=== PATIENT | female | born 1995 | race Caucasian/White ===

== ENCOUNTER 2020-08-18 21:01 | Inpatient (IN) ==
[2020-08-18] MEDS ORDERED: OXYTOCIN 30 UNITS/500 ML BAG IV PRN (21:55)
--- NOTE | 2020-08-18 22:09 | History & Physical Report ---
Date of Service August 18, 2020 Assessment & Plan (1) PROM (premature rupture of membranes): We will do a rapid Covid test as her previous one is out of date group B strep negative the patient wishes to try to walk for a few hours I discussed if after 6 to 8 hours there is no contraction activity would strongly recommend Pitocin and she agrees to this initial blood pressures are somewhat elevated I will order labs as well he is asymptomatic in this regard heart rate is reactive at this stage History of Present Illness Primary Care Provider: NO PCP 40 weeks gestation presents with spontaneous rupture of membranes this happened approximately at 6 PM today the patient is not haily at this time states her fetus is been moving she continues to leak has no bleeding. The patient's was essentially uncomplicated she did have a ultrasound done at approximately 35 to 36 weeks which showed a left estimated weight of 12% and an abdominal circumference of 8%. Group B strep negative the patient has a pending Covid test which was a routine screen her previous Covid test is out of date so a rapid test will be ordered Allergies Allergy/AdvReac Type Severity Reaction Status Date / Time No Known Allergies Verified 08/16/20 11:51 Home Medications Medication Instructions Recorded Confirmed Type omega-3 fatty acids 1,000 mg 1,000 mg PO DAILY 05/14/20 08/18/20 History capsule prenat.vits,emerald,iko-[id number] 1 tab PO DAILY 05/14/20 08/18/20 History ascorbic acid (vitamin C) 1,000 mg PO ONCE 07/19/20 08/18/20 History Patient History Medical History (Updated 08/18/20 @ 22:08 by Hugh Lynch MD, FACOG) Encounter for suspected premature rupture of membranes, with rupture of membranes not found Mandibular hypoplasia Marginal insertion of umbilical cord affecting management of mother with 37 weeks completed gestation Surgical History H/O oral surgery History of esophagogastroduodenoscopy (EGD) History of laparoscopy S/P colonoscopy Status post osteotomy bilateral sagittal split osteotomy Family History Father Brain cancer Kidney disease Grandmother (Maternal) Breast cancer Grandfather (Maternal) Diabetes Brother Kidney disease Grandmother No problems noted. 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 Beliefs That Will Affect Care: None marital status: marital status details: Maximus (29) [phone] Current Living Situation: Spouse Current Living Situation Comment: Maximus Price current occupational status: unemployed Other Information That Helps Us Care for You: No Feels Safe at Home: Yes Safety Concerns: Feels Safe At This Time Assistive Devices: Glasses Physical Exam Constitutional: WD/WN, vitals as above Respiratory: normal respiratory effort, lungs clear to auscultation Cardiovascular: RRR, no murmur, no edema Genitourinary: Manual OB Exam: + cervical dilation 1 cm, + cervical effacement 70% and + station -2 OB Exam Monitor Tracing: + external FHT monitor used Results & Data ([facility]) Vital Signs (Past 12 Hours) Vital Signs Temp Pulse Resp BP 08/18/20 22:04 97 H 162/97 H 08/18/20 21:25 94 H 143/95 H 08/18/20 21:19 98.2 F 18 Coding Level of Care Code None Diagnoses PROM (premature rupture of membranes) O42.90
[2020-08-18 22:49] LABS: Hematocrit (blood only) 38.2 % (37-47); Hemoglobin 13.4 g/dL (12.0-16.0); Mean Corpuscular Hemoglobin 32.5 pg (25-34); Mean Corpuscular Hgb Conc 35.1 g/dL (32-36); Mean Corpuscular Volume 92.7 fL (80-100); Mean Platelet Volume 11.9 fL (7.4-10.4); Platelet Count 204 K/uL (130-400); RDW Coefficient of Variation 13.9 % (11.5-14.5); Red Blood Count 4.12 M/uL (4.2-5.4); White Blood Count 12.32 K/uL (4.8-10.8)
[2020-08-18 23:05] LABS: Creatinine Clr Calc Pharmacy 155.4 ml/min; Est GFR (African American) 145.6; Est GFR (Non-African American) 125.6
[2020-08-19] MEDS: LACTATED RINGER'S 1,000 ML IV PRN ×2 (00:42→01:39)
[2020-08-19] MEDS ORDERED: SODIUM CHLORIDE 0.9% INJ 10 ML VIAL ONE ×2 (00:47→03:34)
[2020-08-19] MEDS ORDERED: ePHEDrine sulfate 50 MG/ML AMP ONE ×3 (00:47→06:40)
[2020-08-19] MEDS ORDERED: fentaNYL citrate 100 MCG/2 ML VIAL ONE ×2 (00:48→03:35)
[2020-08-19] MEDS ORDERED: BUPIVACAINE 0.25% 30 ML VIAL ONE ×3 (00:48→03:35)
[2020-08-19] MEDS ORDERED: fentaNYL 2MCG/ML ROPIVACAINE 1.25MG/ML 100 ML BAG EPI ONE ×2 (00:49→03:35)
[2020-08-19] MEDS ORDERED: NALOXONE HCL 1 MG in SODIUM CHLORIDE 0.9% 1000ML 1,000 ML IV PRN (00:58)
[2020-08-19] MEDS ORDERED: fentaNYL 2MCG/ML ROPIVACAINE 1.25MG/ML 100 ML BAG EPI PRN (00:58)
[2020-08-19] MEDS ORDERED: ONDANSETRON INJ 2 MG/ML 2 ML VIAL IV PRN (00:58)
[2020-08-19] MEDS ORDERED: ePHEDrine sulfate 50 MG/ML AMP IV PRN (00:58)
[2020-08-19] MEDS ORDERED: diphenhydrAMINE 50 MG/ML VIAL IV PRN (00:58)
[2020-08-19] MEDS ORDERED: NALOXONE HCL 0.4 MG/1 ML VIAL/CARP IV PRN (00:58)
--- NOTE | 2020-08-19 01:00 | Anesthesiology Consultation ---
Date of Service August 19, 2020 Assessment & Plan (1) Encounter for pre-operative examination: Chart Review Chart Review: Patient NOT seen in Pre Admission Testing and Acceptable Risk for Labor Epidural Consults Requested none History Height/Weight Height: 5 ft 4 in Weight: 89.811 kg Allergies Allergy/AdvReac Type Severity Reaction Status Date / Time No Known Allergies Verified 08/16/20 11:51 Medications Home Medications Medication Instructions Recorded Confirmed Last Taken omega-3 fatty acids 1,000 mg 1,000 mg PO DAILY 05/14/20 08/18/20 08/16/20 capsule prenat.vits,emerald,lim-frgw-kuufz 1 tab PO DAILY 05/14/20 08/18/20 08/17/20 ascorbic acid (vitamin C) 1,000 mg PO ONCE 07/19/20 08/18/20 08/17/20 Active Medications Generic Name Dose Route Start Last Admin Trade Name Freq PRN Reason Stop Dose Admin Lactated Ringer's 1,000 mls @ 125 mls/hr 08/18/20 21:55 08/19/20 00:42 Lr IV 08/20/20 21:54 999 mls/hr .Q8H PRN Administration L&D Protocol Protocol Past Medical History Medical History Encounter for suspected premature rupture of membranes, with rupture of membranes not found Mandibular hypoplasia Marginal insertion of umbilical cord affecting management of mother with 37 weeks completed gestation Exercise / Class Metabolic Activity II 4-5 Yardwork/Stairs/Walk up hill Past Family History Family History Father Brain cancer Kidney disease Grandmother (Maternal) Breast cancer Grandfather (Maternal) Diabetes Brother Kidney disease Grandmother No problems noted. Grandmother (Paternal) Lymphoma Past Surgical History Surgical History H/O oral surgery History of esophagogastroduodenoscopy (EGD) History of laparoscopy S/P colonoscopy Status post osteotomy bilateral sagittal split osteotomy Past Anesthesia History No Hx of Anesthesia Complications and No Family Hx of Anesthesia Complications History of PONV No Hx of PONV and No Hx of Motion Sickness Social History Smoking Status: Never smoker Do You Dip or Chew Tobacco: No Hx Alcohol Use: No Hx Substance Use: No substance use type: does not use Physical Exam Vital Signs Last Vital Signs Temp 36.7 C 08/19/20 00:47 Pulse 88 08/19/20 01:17 Resp 20 08/19/20 01:15 BP 139/88 08/19/20 01:16 Pulse Ox 93 08/19/20 01:17 Testing Laboratory Results 08/18/20 22:15 08/18/20 22:15
[2020-08-19] MEDS ORDERED: OXYTOCIN 30 UNITS/500 ML BAG IV PRN ×2 (02:00→06:01)
--- NOTE | 2020-08-19 03:33 | Communication Note ---
Date of Service: August 19, 2020 Patient initially comfortable after placing epidural (did epidural and NOT CSE) but two hours later called back by nursing as patient having increasing pain with contractions. Pain somewhat left sided and level was not as high on the left as the right so decided to pull back the catheter 1cm and reapplied sterile dressing. Bolused a total of 10ml 0.25% bupivicaine in divided doses while patient on monitor. VSS. Pain decreased to a tolerable level but it was still present. At this time patient ok with continuing with current epidural but I also did increase the rate. I feel the only other option at this point is to replace the epidural if she continues to have pain. An hour later patient still endorsing pain and wants to try and replace the epidural.
--- NOTE | 2020-08-19 04:04 | Labor Progress Brief Note ---
Date of Service August 19, 2020 Patient is now 6 cm she is struggled with pain relief and is on her second epidural her blood pressures have been elevated we did check preeclampsia labs and these were normal. Some of her elevated blood pressure and discussion with anesthesia at delivery related to pain her most recent 1 is 141/96 although she has had some other ones that were more elevated discussed the role of nifedipine if this maintains I think a lot of these again are related to poor pain control which seems to be improving at this stage Assessment & Plan Admission and Anticipated Discharge Date Admission Date: August 18, 2020 Results & Data ([facility]) Vital Signs (Past 12 Hours) Vital Signs Temp Pulse Resp BP Pulse Ox 08/19/20 04:00 105 H 93 08/19/20 03:58 105 H 156/92 H 96 08/19/20 03:55 92 H 179/93 H 08/19/20 03:54 94 H 93 08/19/20 03:53 95 H 93 08/19/20 03:49 97 H 94 08/19/20 03:48 97 H 154/101 H 89 L 08/19/20 03:44 95 H 93 08/19/20 03:43 97 H 95 08/19/20 03:38 91 H 94 08/19/20 03:33 106 H 94 08/19/20 03:28 89 98 08/19/20 03:27 93 H 163/93 H 91 08/19/20 03:23 76 96 08/19/20 03:22 79 89 L 08/19/20 03:18 83 94 08/19/20 03:16 94 H 94 08/19/20 03:13 82 95 08/19/20 03:10 86 143/90 H 08/19/20 03:08 79 96 08/19/20 03:07 85 93 08/19/20 03:04 84 136/79 08/19/20 03:03 86 95 08/19/20 03:02 77 138/80 08/19/20 03:00 93 H 86 L 08/19/20 02:58 97 H 143/73 H 97 08/19/20 02:56 85 151/80 H 08/19/20 02:55 81 92 08/19/20 02:54 77 149/82 H 08/19/20 02:53 84 97 08/19/20 02:52 80 154/82 H 08/19/20 02:50 77 174/97 H 08/19/20 02:48 81 91 08/19/20 02:46 89 152/77 H 08/19/20 02:44 69 141/70 H 08/19/20 02:43 76 97 08/19/20 02:42 73 158/79 H 93 08/19/20 02:40 81 18 165/89 H 08/19/20 02:38 90 97 08/19/20 02:33 79 100 08/19/20 02:28 86 99 08/19/20 02:25 98.1 F 88 22 149/84 H 08/19/20 02:24 77 167/87 H 08/19/20 02:23 88 97 08/19/20 02:18 86 96 08/19/20 02:14 75 94 08/19/20 02:13 81 96 08/19/20 02:10 78 165/84 H 08/19/20 02:08 84 97 08/19/20 02:03 79 99 08/19/20 02:01 78 93 08/19/20 01:58 80 98 08/19/20 01:53 81 134/89 97 08/19/20 01:51 80 177/81 H 08/19/20 01:48 83 94 08/19/20 01:46 88 135/79 08/19/20 01:45 18 08/19/20 01:43 99 H 94 08/19/20 01:41 88 122/81 08/19/20 01:40 93 H 94 08/19/20 01:38 95 H 93 08/19/20 01:36 90 147/89 H 08/19/20 01:34 96 H 94 08/19/20 01:33 90 94 08/19/20 01:30 90 16 147/80 H 08/19/20 01:29 99 H 94 08/19/20 01:28 97 H 141/83 H 93 08/19/20 01:26 107 H 138/86 08/19/20 01:25 18 08/19/20 01:24 104 H 135/81 08/19/20 01:23 112 H 94 08/19/20 01:22 103 H 137/82 08/19/20 01:20 93 H 18 148/88 H 08/19/20 01:19 101 H 142/84 H 08/19/20 01:18 89 95 08/19/20 01:17 88 93 08/19/20 01:16 90 139/88 08/19/20 01:15 20 08/19/20 01:14 87 154/92 H 08/19/20 01:13 96 H 95 08/19/20 01:11 99 H 94 08/19/20 01:08 89 97 08/19/20 01:05 96 H 94 08/19/20 01:03 88 98 08/19/20 00:59 91 H 94 08/19/20 00:58 86 95 08/19/20 00:47 98.1 F 81 20 138/85 08/18/20 23:28 98.1 F 18 08/18/20 22:08 88 140/88 08/18/20 22:06 97 H 143/92 H 08/18/20 22:04 97 H 162/97 H 08/18/20 21:25 94 H 143/95 H 08/18/20 21:19 98.2 F 18 Coding Level of Care Code None
--- NOTE | 2020-08-19 04:21 | Anesthesiology Progress Note ---
Date of Service August 19, 2020 Assessment & Plan (1) Encounter for pre-operative examination: Neuraxial Placement Date and time of procedure: 08/19/2020 Indication: Post-operative pain control Consent: Informed consent obtained from the patient or designated proxy. The inherent risks, expected benefits, treatment alternatives, as well as the technical aspects of the procedure were discussed with the patient and a full explanation was given. Patient was given the opportunity to ask questions, which were answered to their satisfaction. Time Out: A time-out was performed verifying correct patient with two identifiers, procedure, site, positioning, and special equipment (if needed). Monitors Attached: EKG BP Pulse Oximetry Prehydrated: [500]ml lactated ringers Position: Sitting Prep: Duraprep Sterile Drape Sterile procedures used Site: Midline Paramedian Level L[] Local Skin Infiltration: [2] ml 1% lidocaine Neuraxial Technique: Epidural Needle: 17 G FernandoVingle Test dose: [3]ml of 1.5% Lidocaine with epinephrine 1:200,000 Anesthetic: [10]ml 0.125% Bupivicaine Additives: [100] mcg Fentanyl Attempts: 1 Parasthesias: No CSF: No Blood: No heme aspirated. Some bleeding at skin site. Pressure held. Rechecked 20 minutes later. No further bleeding appreciated. Post Procedure: Patient tolerated the procedure well without apparent complications. Admission and Anticipated Discharge Date Admission Date: August 18, 2020 Subjective Replaced patient's epidural. See note below. Physical Exam Vital Signs: Last Vital Signs Temp 36.7 C 08/19/20 02:25 Pulse 104 H 08/19/20 04:13 Resp 18 08/19/20 02:40 BP 153/96 H 08/19/20 04:08 Pulse Ox 93 08/19/20 04:13 ENMT: Mouth: no TMJ abnormality and no dentition abnormality Thyromental Distance: > or= 3.5 Finger Breadths Mallampati Class: II Neck: normal visual inspection Respiratory: normal respiratory effort Auscultation: lungs clear to auscultation bilaterally Cardiovascular: Rate/Rhythm: regular rate and regular rhythm Musculoskeletal: Spine: normal cervical ROM and no pain with cervical ROM Neurologic: moves all extremities Psychiatric: Orientation: alert and oriented x 3 Results & Data ([facility]) Medications Administered Lactated Ringer's (Lr) 1,000 mls @ 125 mls/hr IV .Q8H PRN; Protocol PRN Reason: L&D Protocol Stop: 08/20/20 21:54 Last Admin: 08/19/20 01:39 Dose: 125 mls/hr Documented by: [id number] Infusion: 08/19/20 01:39 Dose: 999 mls/hr Documented by: [id number] Admin: 08/19/20 00:42 Dose: 999 mls/hr Documented by: [id number] Oxytocin (Pitocin) 30 units in 500 mls @ 3 mls/hr IV .Q24H PRN; Protocol PRN Reason: Labor Induction/Augmentation Stop: 09/18/20 01:59 Last Titration: 08/19/20 03:00 Dose: 0.18 units/hr, 3 mls/hr Documented by: [id number] Admin: 08/19/20 02:01 Dose: 0.06 units/hr, 1 mls/hr Documented by: [id number] Cosigned by: [id number]
[2020-08-19] MEDS ORDERED: NIFEdipine 10 MG CAP PO STA (05:47)
--- NOTE | 2020-08-19 05:48 | Delivery Summary ---
Vaginal Delivery Summary Date of Service August 19, 2020 Spontaneous vaginal delivery patient arrived with ruptured membranes was clarke lowry with Pitocin received an epidural had some difficulties getting comfortable and received a second epidural at that time her blood pressures were somewhat labile she did progress rapidly to full dilatation and pushed delivering a baby in occiput anterior position with clear fluid no nuchal cord baby was delivered with gentle traction no excessive force was used live vigorous male cord clamped and cut cord gases obtained cord blood obtained placenta removed with gentle traction IV Pitocin started second-degree tear repaired with 3-0 Vicryl sponge and instrument counts were correct estimated blood loss 250 mL Her blood pressures were fairly labile after delivery with systolics in the 130s then ranging to the 170s with the systolic of 170 nifedipine 10 mg p.o. stat was given will monitor blood pressures carefully at this stage Vaginal Delivery Summary [facility] Vaginal Delivery Charge Vaginal Delivery Codes: 42612 global code for the antepartum, delivery, and post- Procedure Anesthesia type: Epidural
[2020-08-19] MEDS ORDERED: NIFEdipine 10 MG CAP ONE (05:52)
[2020-08-19] MEDS ORDERED: ACETAMINOPHEN 325 MG TAB PO PRN (06:01)
[2020-08-19] MEDS ORDERED: HYDROCORTISONE ACETATE 25 MG SUPP PR PRN (06:01)
[2020-08-19] MEDS ORDERED: oxyCODONE/ACETAMINOPHEN 5mg/325mg TAB PO PRN (06:01)
[2020-08-19] MEDS ORDERED: bisacodyL 10 MG SUPP PR PRN (06:01)
[2020-08-19] MEDS ORDERED: BENZOCAINE 20% AER SPR 82.5 GM CAN EXT PRN (06:01)
[2020-08-19] MEDS ORDERED: DIPHTHERIA/TETANUS/PERTUSSIS 0.5 ML SYR/VIAL IM ONE (06:01)
[2020-08-19] MEDS ORDERED: SUPERCREAM 0.870% 15 GM JAR EXT PRN (06:01)
[2020-08-19 06:16] LABS: Base Excess Cord Venous Blood -3.4 mEq/L (-7.7-1.9); Cord Venous Blood HCO3 23 mmol/L (18.4-26.8); Cord Venous Blood PCO2 46 mmHg (30.4-57.2); Cord Venous Blood PO2 28 mmHg (14.1-43.3); Cord Venous Blood pH 7.32 (7.20-7.44)
[2020-08-19 06:19] LABS: O2 Saturation Cord Venous Bld < 60.0 % (<68)
[2020-08-19] MEDS ORDERED: ePHEDrine sulfate 50 MG/ML AMP IV STA (07:09)
--- NOTE | 2020-08-19 07:11 | Obstetrical Progress Note ---
Date of Service August 19, 2020 Assessment & Plan Admission and Anticipated Discharge Date Admission Date: August 18, 2020 Subjective After delivery the patient's blood pressures had increased significantly. She had a systolic of 176 she was asymptomatic but I ordered 10 mg p.o. of nifedipine she responded quite rapidly however her blood pressure became overly low with a 64/34 result after fluid bolus and then a subsequent 10 mg dose of ephedrine pressures have normalized her latest blood pressure is 115/55 we will watch her closely Results & Data ([facility]) Vital Signs (Past 12 Hours) Vital Signs Temp Pulse Resp BP Pulse Ox 08/19/20 07:07 125 H 115/55 L 08/19/20 07:05 123 H 112/58 L 08/19/20 07:03 104 H 112/66 08/19/20 07:01 112 H 104/59 L 08/19/20 06:59 106 H 110/61 08/19/20 06:57 112 H 105/63 08/19/20 06:55 110 H 105/61 08/19/20 06:53 103 H 99/57 L 08/19/20 06:51 110 H 99/57 L 08/19/20 06:49 106 H 95/52 L 08/19/20 06:47 107 H 88/52 L 08/19/20 06:45 100 H 90/48 L 08/19/20 06:43 99 H 98/46 L 08/19/20 06:42 90 64/34 L 08/19/20 06:41 76 64/36 L 08/19/20 06:39 81 64/35 L 08/19/20 06:38 90 71/41 L 08/19/20 06:36 77 70/38 L 08/19/20 06:35 80 73/37 L 08/19/20 06:31 77 91/49 L 08/19/20 06:18 139 H 137/72 08/19/20 06:03 117 H 20 144/99 H 08/19/20 05:44 98.2 F 106 H 18 172/84 H 08/19/20 05:43 111 H 195/93 H 08/19/20 05:42 114 H 131/103 H 08/19/20 05:38 112 H 93 08/19/20 05:33 118 H 92 08/19/20 05:32 109 H 94 08/19/20 05:28 131 H 97 08/19/20 05:27 126 H 92 08/19/20 05:24 129 H 138/94 08/19/20 05:23 126 H 97 08/19/20 05:21 116 H 88 L 08/19/20 05:18 120 H 96 08/19/20 05:13 117 H 89 L 08/19/20 05:10 111 H 91 08/19/20 05:09 102 H 139/102 H 08/19/20 05:08 95 H 96 08/19/20 05:05 104 H 94 08/19/20 05:03 109 H 75 L 08/19/20 04:59 93 H 94 08/19/20 04:58 83 96 08/19/20 04:54 79 138/79 08/19/20 04:53 89 95 08/19/20 04:52 88 94 08/19/20 04:48 104 H 95 08/19/20 04:44 84 90 08/19/20 04:43 108 H 91 08/19/20 04:39 98 H 147/87 H 94 08/19/20 04:38 99 H 95 08/19/20 04:33 97 H 93 08/19/20 04:28 94 H 93 08/19/20 04:27 96 H 94 08/19/20 04:24 96 H 145/80 H 08/19/20 04:23 93 H 94 08/19/20 04:21 98 H 94 08/19/20 04:18 96 H 94 08/19/20 04:16 96 H 94 08/19/20 04:13 104 H 93 08/19/20 04:10 104 H 89 L 08/19/20 04:08 104 H 153/96 H 97 08/19/20 04:07 104 H 152/110 H 08/19/20 04:05 101 H 92 08/19/20 04:04 97 H 147/96 H 08/19/20 04:03 108 H 96 08/19/20 04:02 100 H 141/96 H 08/19/20 04:00 105 H 93 08/19/20 03:58 105 H 156/92 H 96 08/19/20 03:55 92 H 179/93 H 08/19/20 03:54 94 H 93 08/19/20 03:53 95 H 93 08/19/20 03:49 97 H 94 08/19/20 03:48 97 H 154/101 H 89 L 08/19/20 03:44 95 H 93 08/19/20 03:43 97 H 95 08/19/20 03:38 91 H 94 08/19/20 03:33 106 H 94 08/19/20 03:28 89 98 08/19/20 03:27 93 H 163/93 H 91 08/19/20 03:23 76 96 08/19/20 03:22 79 89 L 08/19/20 03:18 83 94 08/19/20 03:16 94 H 94 08/19/20 03:13 82 95 08/19/20 03:10 86 143/90 H 08/19/20 03:08 79 96 08/19/20 03:07 85 93 08/19/20 03:04 84 136/79 08/19/20 03:03 86 95 08/19/20 03:02 77 138/80 08/19/20 03:00 93 H 86 L 08/19/20 02:58 97 H 143/73 H 97 08/19/20 02:56 85 151/80 H 08/19/20 02:55 81 92 08/19/20 02:54 77 149/82 H 08/19/20 02:53 84 97 08/19/20 02:52 80 154/82 H 08/19/20 02:50 77 174/97 H 08/19/20 02:48 81 91 08/19/20 02:46 89 152/77 H 08/19/20 02:44 69 141/70 H 08/19/20 02:43 76 97 08/19/20 02:42 73 158/79 H 93 08/19/20 02:40 81 18 165/89 H 08/19/20 02:38 90 97 08/19/20 02:33 79 100 08/19/20 02:28 86 99 08/19/20 02:25 98.1 F 88 22 149/84 H 08/19/20 02:24 77 167/87 H 08/19/20 02:23 88 97 08/19/20 02:18 86 96 08/19/20 02:14 75 94 08/19/20 02:13 81 96 08/19/20 02:10 78 165/84 H 08/19/20 02:08 84 97 08/19/20 02:03 79 99 08/19/20 02:01 78 93 08/19/20 01:58 80 98 08/19/20 01:53 81 134/89 97 08/19/20 01:51 80 177/81 H 08/19/20 01:48 83 94 08/19/20 01:46 88 135/79 08/19/20 01:45 18 08/19/20 01:43 99 H 94 08/19/20 01:41 88 122/81 08/19/20 01:40 93 H 94 08/19/20 01:38 95 H 93 08/19/20 01:36 90 147/89 H 08/19/20 01:34 96 H 94 08/19/20 01:33 90 94 08/19/20 01:30 90 16 147/80 H 08/19/20 01:29 99 H 94 08/19/20 01:28 97 H 141/83 H 93 08/19/20 01:26 107 H 138/86 08/19/20 01:25 18 08/19/20 01:24 104 H 135/81 08/19/20 01:23 112 H 94 08/19/20 01:22 103 H 137/82 08/19/20 01:20 93 H 18 148/88 H 08/19/20 01:19 101 H 142/84 H 08/19/20 01:18 89 95 08/19/20 01:17 88 93 08/19/20 01:16 90 139/88 08/19/20 01:15 20 08/19/20 01:14 87 154/92 H 08/19/20 01:13 96 H 95 08/19/20 01:11 99 H 94 08/19/20 01:08 89 97 08/19/20 01:05 96 H 94 08/19/20 01:03 88 98 08/19/20 00:59 91 H 94 08/19/20 00:58 86 95 08/19/20 00:47 98.1 F 81 20 138/85 08/18/20 23:28 98.1 F 18 08/18/20 22:08 88 140/88 08/18/20 22:06 97 H 143/92 H 08/18/20 22:04 97 H 162/97 H 08/18/20 21:25 94 H 143/95 H 08/18/20 21:19 98.2 F 18 PG Care Time/CCT Total # of Minutes Spent Total Time Spent with Patient: Total time spent is greater than 50% in coordination of care (as documented) at patient's floor/unit and/or counseling patient: Coding Level of Care Code None
[2020-08-19] MEDS: IBUPROFEN 600 MG TAB PO PRN ×3 (07:32→17:02)
--- NOTE | 2020-08-19 07:41 | Anesthesia Procedure Note ---
Date of Service August 19, 2020 Anesthesia Post Epidural Note Vital Signs Vital Signs: Temp Pulse Resp BP Pulse Ox 36.8 C 126 H 18 123/68 93 08/19/20 05:44 08/19/20 07:17 08/19/20 06:45 08/19/20 07:17 08/19/20 05:38 Pain Intensity Abdomen: Pain Intensity: 0 Notes Mental Status: alert / awake / arousable and participated in evaluation Nausea / Vomiting: adequately controlled Pain: adequately controlled Airway Patency, RR, SpO2: stable & adequate BP & HR: stable & adequate Hydration State: stable & adequate Neuraxial Anesthesia: was administered and sensory block is resolving Anesthetic Complications: no major complications apparent and Pt Satisfied with anesthetic care Epidural: Removed without complications and With tip intact Notes: Epidural site clean, dry and intact. No signs of edema, erythema or bruising at insertion site. Pt instructed to request anesthesia if she has residual lower extremity numbness or if she develops lower extremity pain or weakness, back pain or headache.
[2020-08-19] MEDS: DOCUSATE SODIUM 100 MG CAP PO SCH ×2 (08:25→19:58)
[2020-08-19] MEDS: PRENATAL VITAMIN 1 TAB PO SCH (08:25)
[2020-08-19] MEDS ORDERED: BUTORPHANOL TARTRATE 1 MG/ML VIAL IV STA (08:45)
[2020-08-19] MEDS ORDERED: OXYTOCIN 20 UNITS in LACTATED RINGER'S 1,000 ML IV SCH (09:00)
[2020-08-19 09:14] LABS: Hematocrit (blood only) 33.7 % (37-47); Hemoglobin 11.7 g/dL (12.0-16.0); Mean Corpuscular Hemoglobin 32.1 pg (25-34); Mean Corpuscular Hgb Conc 34.7 g/dL (32-36); Mean Corpuscular Volume 92.3 fL (80-100); Platelet Count 169 K/uL (130-400); RDW Coefficient of Variation 13.9 % (11.5-14.5); RDW Standard Deviation 46.7 fL (36.4-46.3); Red Blood Count 3.65 M/uL (4.2-5.4); White Blood Count 20.66 K/uL (4.8-10.8)
[2020-08-19 09:21] LABS: Albumin Level 2.3 gm/dl (3.4-5.0); BUN Creatinine Ratio 11.9 (10-20); Calcium 9.6 mg/dl (8.5-10.1); Est GFR (African American) 102.9; Est GFR (Non-African American) 88.8; Potassium 3.7 mmol/L (3.5-5.1)
[2020-08-19 09:24] LABS: Albumin Globulin Ratio 0.7 (0.9-2); Bilirubin,Total 0.4 mg/dl (0.2-1); Globulin 3.5 gm/dl (2.5-4.0); Total Protein 5.8 gm/dl (6.4-8.2)
--- NOTE | 2020-08-19 09:39 | Obstetrical Progress Note ---
Date of Service August 19, 2020 Assessment & Plan (1) Post term over 40 weeks: (2) care and examination immediately after delivery: given tachy and her appearance stat labs ordered. rec ivf. pt offered stadol for pain and she agrees. will try to better assess for any ?hematoma given increased butt pain andrew if h/h not appropriate. for now will give her pain meds to make more comfortable. bp noted. pt aware of plan. Admission and Anticipated Discharge Date Admission Date: August 18, 2020 Subjective On arrival secretary receptionist, nursing let me know of tachycardia. pt "looks sick" per nurse. I went in room and pt lips look pale, she was holding baby but then gave baby to spouse and said she was having pain. Her pain was in her buttocks and had felt dizzy when she sitting more upright. Denies hu or visual change. At signout this am, I did learn that pt had been given nifedipine for high bp and then ephedrine for low bp. urine prot neg per admission. labs with admission were ok. Had 2nd degree lac per nurse. Review of Systems Constitutional: as per Subjective / HPI Physical Exam Constitutional: well developed, well nourished and + ill appearing Psychiatric: Orientation: alert and oriented x 3 Genitourinary: Perineum with no obvious masses. no digital exam done. pt in pain. chux with bleeding c/w normal pp and ff at u. Results & Data ([facility]) Vital Signs (Past 12 Hours) Vital Signs Temp Pulse Resp BP Pulse Ox 08/19/20 09:33 119 H 97 08/19/20 09:30 134 H 122/57 L 08/19/20 09:28 129 H 97 08/19/20 09:23 119 H 97 08/19/20 09:20 134 H 110/58 L 08/19/20 09:18 125 H 97 08/19/20 09:13 118 H 96 08/19/20 09:10 134 H 113/63 08/19/20 09:08 121 H 98 08/19/20 09:03 117 H 97 08/19/20 09:00 127 H 20 109/57 L 08/19/20 08:58 125 H 98 08/19/20 08:53 121 H 97 08/19/20 08:50 127 H 108/59 L 08/19/20 08:48 126 H 97 08/19/20 08:43 128 H 99 08/19/20 08:40 131 H 103/52 L 08/19/20 08:38 137 H 100 08/19/20 08:33 121 H 99 08/19/20 08:30 134 H 121/66 08/19/20 08:28 127 H 96 08/19/20 08:26 98.1 F 142 H 24 121/63 08/19/20 08:20 141 H 134/64 08/19/20 08:11 131 H 128/63 08/19/20 08:00 129 H 182/78 H 08/19/20 07:41 123 H 155/75 H 08/19/20 07:17 126 H 123/68 08/19/20 07:15 107 H 116/64 08/19/20 07:13 122 H 147/63 H 08/19/20 07:11 110 H 118/66 08/19/20 07:09 122 H 111/55 L 08/19/20 07:07 125 H 115/55 L 08/19/20 07:05 123 H 112/58 L 08/19/20 07:03 104 H 112/66 08/19/20 07:01 112 H 104/59 L 08/19/20 06:59 106 H 110/61 08/19/20 06:57 112 H 105/63 08/19/20 06:55 110 H 105/61 08/19/20 06:53 103 H 99/57 L 08/19/20 06:51 110 H 99/57 L 08/19/20 06:49 106 H 95/52 L 08/19/20 06:47 107 H 88/52 L 08/19/20 06:45 100 H 18 90/48 L 08/19/20 06:43 99 H 98/46 L 08/19/20 06:42 90 64/34 L 08/19/20 06:41 76 64/36 L 08/19/20 06:39 81 64/35 L 08/19/20 06:38 90 71/41 L 08/19/20 06:36 77 70/38 L 08/19/20 06:35 80 73/37 L 08/19/20 06:31 77 91/49 L 08/19/20 06:18 139 H 18 137/72 08/19/20 06:03 117 H 20 144/99 H 08/19/20 05:44 98.2 F 106 H 18 172/84 H 08/19/20 05:43 111 H 195/93 H 08/19/20 05:42 114 H 131/103 H 08/19/20 05:38 112 H 93 08/19/20 05:33 118 H 92 08/19/20 05:32 109 H 94 08/19/20 05:28 131 H 97 08/19/20 05:27 126 H 92 08/19/20 05:24 129 H 138/94 08/19/20 05:23 126 H 97 08/19/20 05:21 116 H 88 L 08/19/20 05:18 120 H 96 08/19/20 05:13 117 H 89 L 08/19/20 05:10 111 H 91 08/19/20 05:09 102 H 139/102 H 08/19/20 05:08 95 H 96 08/19/20 05:05 104 H 94 08/19/20 05:03 109 H 75 L 08/19/20 04:59 93 H 94 08/19/20 04:58 83 96 08/19/20 04:54 79 138/79 08/19/20 04:53 89 95 08/19/20 04:52 88 94 08/19/20 04:48 104 H 95 08/19/20 04:44 84 90 08/19/20 04:43 108 H 91 08/19/20 04:39 98 H 147/87 H 94 08/19/20 04:38 99 H 95 08/19/20 04:33 97 H 93 08/19/20 04:28 94 H 93 08/19/20 04:27 96 H 94 08/19/20 04:24 96 H 145/80 H 08/19/20 04:23 93 H 94 08/19/20 04:21 98 H 94 08/19/20 04:18 96 H 94 08/19/20 04:16 96 H 94 08/19/20 04:13 104 H 93 08/19/20 04:10 104 H 89 L 08/19/20 04:08 104 H 153/96 H 97 08/19/20 04:07 104 H 152/110 H 08/19/20 04:05 101 H 92 08/19/20 04:04 97 H 147/96 H 08/19/20 04:03 108 H 96 08/19/20 04:02 100 H 141/96 H 08/19/20 04:00 105 H 93 08/19/20 03:58 105 H 156/92 H 96 08/19/20 03:55 92 H 179/93 H 08/19/20 03:54 94 H 93 08/19/20 03:53 95 H 93 08/19/20 03:49 97 H 94 08/19/20 03:48 97 H 154/101 H 89 L 08/19/20 03:44 95 H 93 08/19/20 03:43 97 H 95 08/19/20 03:38 91 H 94 08/19/20 03:33 106 H 94 08/19/20 03:28 89 98 08/19/20 03:27 93 H 163/93 H 91 08/19/20 03:23 76 96 08/19/20 03:22 79 89 L 08/19/20 03:18 83 94 08/19/20 03:16 94 H 94 08/19/20 03:13 82 95 08/19/20 03:10 86 143/90 H 08/19/20 03:08 79 96 08/19/20 03:07 85 93 08/19/20 03:04 84 136/79 08/19/20 03:03 86 95 08/19/20 03:02 77 138/80 08/19/20 03:00 93 H 86 L 08/19/20 02:58 97 H 143/73 H 97 08/19/20 02:56 85 151/80 H 08/19/20 02:55 81 92 08/19/20 02:54 77 149/82 H 08/19/20 02:53 84 97 08/19/20 02:52 80 154/82 H 08/19/20 02:50 77 174/97 H 08/19/20 02:48 81 91 08/19/20 02:46 89 152/77 H 08/19/20 02:44 69 141/70 H 08/19/20 02:43 76 97 08/19/20 02:42 73 158/79 H 93 08/19/20 02:40 81 18 165/89 H 08/19/20 02:38 90 97 08/19/20 02:33 79 100 08/19/20 02:28 86 99 08/19/20 02:25 98.1 F 88 22 149/84 H 08/19/20 02:24 77 167/87 H 08/19/20 02:23 88 97 08/19/20 02:18 86 96 08/19/20 02:14 75 94 08/19/20 02:13 81 96 08/19/20 02:10 78 165/84 H 08/19/20 02:08 84 97 08/19/20 02:03 79 99 08/19/20 02:01 78 93 08/19/20 01:58 80 98 08/19/20 01:53 81 134/89 97 08/19/20 01:51 80 177/81 H 08/19/20 01:48 83 94 08/19/20 01:46 88 135/79 08/19/20 01:45 18 08/19/20 01:43 99 H 94 08/19/20 01:41 88 122/81 08/19/20 01:40 93 H 94 08/19/20 01:38 95 H 93 08/19/20 01:36 90 147/89 H 08/19/20 01:34 96 H 94 08/19/20 01:33 90 94 08/19/20 01:30 90 16 147/80 H 08/19/20 01:29 99 H 94 08/19/20 01:28 97 H 141/83 H 93 08/19/20 01:26 107 H 138/86 08/19/20 01:25 18 08/19/20 01:24 104 H 135/81 08/19/20 01:23 112 H 94 08/19/20 01:22 103 H 137/82 08/19/20 01:20 93 H 18 148/88 H 08/19/20 01:19 101 H 142/84 H 08/19/20 01:18 89 95 08/19/20 01:17 88 93 08/19/20 01:16 90 139/88 08/19/20 01:15 20 08/19/20 01:14 87 154/92 H 08/19/20 01:13 96 H 95 08/19/20 01:11 99 H 94 08/19/20 01:08 89 97 08/19/20 01:05 96 H 94 08/19/20 01:03 88 98 08/19/20 00:59 91 H 94 08/19/20 00:58 86 95 08/19/20 00:47 98.1 F 81 20 138/85 08/18/20 23:28 98.1 F 18 08/18/20 22:08 88 140/88 08/18/20 22:06 97 H 143/92 H 08/18/20 22:04 97 H 162/97 H PG Care Time/CCT Total # of Minutes Spent Total Time Spent with Patient: Total time spent is greater than 50% in coordination of care (as documented) at patient's floor/unit and/or counseling patient: Coding Level of Care Code None Diagnoses Post term over 40 weeks O48.0 care and examination immediately after delivery Z39.0
[2020-08-19] MEDS ORDERED: LIDOCAINE 2% JELLY 5 ML TUBE ONE (12:04)
[2020-08-20] MEDS: IBUPROFEN 600 MG TAB PO PRN ×4 (03:06→19:53)
--- NOTE | 2020-08-20 06:59 | Obstetrical Progress Note ---
Date of Service <Jordan Barr MD - Last Filed: 08/20/20 07:53> August 20, 2020 Assessment & Plan <Jordan Barr MD - Last Filed: 08/20/20 07:53> (1) care and examination immediately after delivery: A/P: Sondra Austin is a 25 y/o female on PPD#1 following at 40+4 weeks. * Patient feels well today; eating well, voiding well, ambulating well * Pain well-controlled with ibuprofen 600mg q4h prn * Routine postcesarean care: OOB, ambulation, diet progression as tolerated * After discharge, will have six-week follow-up with Dr. Lynch Subjective <Jordan Barr MD - Last Filed: 08/20/20 07:53> Ambulation: ambulating normally Voiding: no voiding problems Passing Gas:: Yes Diet Tolerance:: regular diet Lochia:: Mervin Austin is a 25 y/o female on PPD#1 following at 40+4 weeks. She reports feeling well overall this morning. Minimal abdominal cramping and 2/10 pain well managed on analgesics. Voiding well. Tolerating meals overnight without difficulty. Patient has been able to ambulate some. Has persistent lochia with some improvement this morning. Currently pumping. Constitutional: no fever and no chills Respiratory: no cough and no dyspnea Cardiovascular: no chest pain, no palpitations and no edema Gastrointestinal: no nausea and no vomiting Genitourinary (female): no dysuria Physical Exam <Jordan Barr MD - Last Filed: 08/20/20 07:53> General: alert, oriented, no acute distress Cardiac: regular rate and rhythm, no murmurs appreciated Respiratory: lungs clear to auscultation bilaterally a/p, no wheezes/rales/rhonchi, no increased work of breathing, symmetrical chest rise, no respiratory distress Abdomen: soft, minimally tender, nondistended, bowel sounds present Uterus: uterine fundus firm, palpable 2 cm below umbilicus Lower extremities: no lower extremity edema or swelling, no deep calf pain, Rehan's negative bilaterally Constitutional no acute distress Respiratory normal respiratory effort, lungs clear to auscultation Cardiovascular RRR, no murmur, no edema Gastrointestinal (Abdomen) Inspection/Auscultation: normal bowel sounds Percussion/Palpation: abdomen soft Results & Data ([facility]) <Jordan Barr MD - Last Filed: 08/20/20 07:53> Vital Signs (Past 12 Hours) Vital Signs Temp Pulse Resp BP Pulse Ox 08/20/20 03:15 36.4 C L 107 H 16 119/87 97 08/19/20 23:35 36.4 C L 110 H 16 120/81 96 <Priscila Rodrigez MD, FACOG - Last Filed: 08/20/20 08:20> Co-Signing Physician Notes Resident Physician Supervision Note: I was present with Dr. Barr during the history and exam. I discussed the case with the resident and agree with the findings and plan as documented in the note. Any exceptions or clarifications are listed here: doing well but pumping, having trouble getting baby to breast. eating, voiding. bps ok after episodes yest am. routine care today. rh neg, needs rhogam. baby rh pos. Documented By: Priscila Rodrigez MD, FACOG Resident Activity Tracking <Jordan Barr MD - Last Filed: 08/20/20 07:53> Resident Involvement: Resident Care Provided Care Provided: OB Delivery
[2020-08-20 07:08] LABS: Hematocrit (blood only) 28.4 % (37-47); Hemoglobin 9.8 g/dL (12.0-16.0); Mean Corpuscular Hemoglobin 32.5 pg (25-34); Mean Corpuscular Hgb Conc 34.5 g/dL (32-36); Mean Platelet Volume 11.6 fL (7.4-10.4); Platelet Count 159 K/uL (130-400); RDW Coefficient of Variation 14.3 % (11.5-14.5); RDW Standard Deviation 49.1 fL (36.4-46.3); Red Blood Count 3.02 M/uL (4.2-5.4); White Blood Count 16.31 K/uL (4.8-10.8)
[2020-08-20] MEDS: PRENATAL VITAMIN 1 TAB PO SCH (08:43)
[2020-08-20] MEDS: DOCUSATE SODIUM 100 MG CAP PO SCH ×2 (08:43→19:53)
[2020-08-20] MEDS ORDERED: bisacodyL 5 MG TABEC PO SCH (20:00)
[2020-08-21] MEDS: IBUPROFEN 600 MG TAB PO PRN ×2 (05:08→12:32)
--- NOTE | 2020-08-21 06:30 | Obstetrical Progress Note ---
Date of Service <Jordan Barr MD - Last Filed: 08/21/20 06:33> August 21, 2020 Assessment & Plan <Jordan Barr MD - Last Filed: 08/21/20 06:33> (1) Post term over 40 weeks: A/P: Sondra Austin is a 25 y/o female on PPD#2 following at 40+4 weeks. * Patient feels well today; eating well, voiding well, ambulating well * Pain well-controlled with ibuprofen 600mg q4h prn * PNL: Rh neg, Ab neg, RI, COVID neg * Needs Rhogam administration * Routine postcesarean care: OOB, ambulation, diet progression as tolerated * After discharge, will have six-week follow-up with Dr. Lynch Subjective <Jordan Barr MD - Last Filed: 08/21/20 06:33> Sondra Austin is a 25 y/o female on PPD#2 following at 40+4 weeks. She reports feeling well overall this morning. Mild abdominal cramping and 2/10 pain well managed on analgesics. Voiding well. Tolerating meals overnight without difficulty. Patient has been able to ambulate some - endorses mild SOB upon standing that resolves shortly after she remains standing or walks around a bit. Has persistent lochia with some improvement this morning. Currently . Denies fever or chills. Denies cough. Denies chest pain. . Denies dysuria. Denies leg pain. Denies headache or changes in vision. Physical Exam <Jordan Barr MD - Last Filed: 08/21/20 06:33> General: alert, oriented, no acute distress Cardiac: regular rate and rhythm, no murmurs appreciated Respiratory: lungs clear to auscultation bilaterally a/p, no wheezes/rales/rhonchi, no increased work of breathing, symmetrical chest rise, no respiratory distress Abdomen: soft, minimally tender, nondistended, bowel sounds present Uterus: uterine fundus firm, palpable 2cm below umbilicus Lower extremities: no lower extremity edema or swelling, no deep calf pain, Rehan's negative bilaterally Results & Data ([facility]) <Jordan Barr MD - Last Filed: 08/21/20 06:33> Vital Signs (Past 12 Hours) Vital Signs Temp Pulse Pulse Resp BP Pulse Ox 08/20/20 23:05 36.8 C 95 H 18 122/73 99 08/20/20 19:30 36.7 C 90 18 131/80 <Zahra Graves MD - Last Filed: 08/21/20 07:35> Co-Signing Physician Notes I have reviewed the resident's note and examined the patient myself, and agree with the note above except where it mentions needing post- care as this patient had a VAGINAL delivery, and where it mentions still needing RhoGAM which was documented as given on 08/19 at 14:03.
[2020-08-21 06:31] LABS: Hematocrit (blood only) 28.7 % (37-47); Hemoglobin 9.6 g/dL (12.0-16.0)
[2020-08-21] MEDS: PRENATAL VITAMIN 1 TAB PO SCH (08:47)
[2020-08-21] MEDS: DOCUSATE SODIUM 100 MG CAP PO SCH (08:47)
== END 2020-08-21 16:00 | disposition home or self-care (01) | DRG 768 ==
LOC: OPB 21:01 → 4S1 21:02 → 4S2 08-19 11:38

== ENCOUNTER 2023-01-23 16:05 | Inpatient (IN) ==
[2023-01-23] MEDS ORDERED: LACTATED RINGER'S 1,000 ML IV PRN (18:33)
[2023-01-23] MEDS ORDERED: LIDOCAINE 1% LOCAL 20 ML VIAL INFIL PRN (18:33)
[2023-01-23] MEDS ORDERED: OXYTOCIN 30 UNITS/500 ML BAG IV PRN ×2 (18:33→19:47)
--- NOTE | 2023-01-23 18:37 | Anesthesiology Consultation ---
Date of Service January 23, 2023 Assessment & Plan Chart Review Chart Review: Acceptable Risk for Surgery and Patient NOT seen in Pre Admission Testing Consults Requested none ASA ASA2 Proposed Anesthesia Anesthesia Type: Labor Epidural and CSE History Height/Weight Height: 5 ft 4 in Weight: 88.451 kg Allergies Allergy/AdvReac Type Severity Reaction Status Date / Time No Known Allergies Verified 12/25/22 13:54 Medications Home Medications Medication Instructions Recorded Confirmed Last Taken prenat.vits,emerald,lir-gxci-opovb 1 tab PO DAILY 05/14/20 10/24/22 08/17/20 ondansetron 4 mg disintegrating 4 mg PO Q6H PRN nausea and 10/24/22 Unknown tablet vomiting #20 tabs [id number]-[id number] 1 mg 1 tab PO DAILY 12/25/22 12/25/22 12/24/22 tablet Past Medical History Medical History Anxiety Anxiety no meds Depression no meds Encounter for pre-operative examination Mandibular hypoplasia Post term over 40 weeks care and examination immediately after delivery PROM (premature rupture of membranes) Rosacea no meds (spontaneous vaginal delivery) 2020 Exercise / Class Metabolic Activity II 4-5 Yardwork/Stairs/Walk up hill Past Family History Family History Father Brain cancer Kidney disease Grandmother (Maternal) Breast cancer Grandfather (Maternal) Diabetes Brother Kidney disease Grandmother No problems noted. Grandmother (Paternal) Lymphoma Grandmother (Maternal) Non-Hodgkin lymphoma Grandfather (Paternal) Pancreas cancer Grandmother (Paternal) Breast cancer Father Brain cancer Denies family history of Ovarian cancer Prostate cancer Colorectal cancer Past Surgical History Surgical History H/O oral surgery History of appendectomy as teenager History of esophagogastroduodenoscopy (EGD) History of laparoscopy History of mandibular surgery History of mandibular surgery at age 11 and 14 Hx of appendectomy (~2014) S/P colonoscopy Status post osteotomy bilateral sagittal split osteotomy Past Anesthesia History No Hx of Anesthesia Complications and No Family Hx of Anesthesia Complications History of PONV No Hx of PONV and No Hx of Motion Sickness Social History Smoking Status: Never smoker Do You Dip or Chew Tobacco: No Hx Alcohol Use: No Alcohol type: wine Hx Substance Use: No substance use type: does not use Physical Exam Vital Signs Last Vital Signs Temp 36.6 C 01/23/23 16:16 Pulse 110 H 01/23/23 16:11 Resp 20 01/23/23 16:16 BP 127/83 01/23/23 16:11
[2023-01-23] MEDS ORDERED: ePHEDrine sulfate 50 MG/ML AMP ONE (18:49)
[2023-01-23] MEDS ORDERED: fentaNYL 2MCG/ML ROPIVACAINE 1.25MG/ML 100 ML BAG EPI ONE (18:49)
[2023-01-23] MEDS ORDERED: SODIUM CHLORIDE 0.9% PF INJ 10 ML VIAL ONE (18:49)
[2023-01-23] MEDS ORDERED: fentaNYL citrate PF 100 MCG/2 ML VIAL ONE (18:49)
[2023-01-23] MEDS ORDERED: BUPIVACAINE 0.25% PF 30 ML VIAL ONE (18:49)
[2023-01-23] MEDS ORDERED: LIDOCAINE 2%/EPINEPHRINE 1:200,000 20 ML PF ONE (18:49)
[2023-01-23 19:02] LABS: Hematocrit (blood only) 39.3 % (37.0-47.0); Hemoglobin 13.8 g/dl (12.0-16.0); Mean Corpuscular Hemoglobin 32.4 pg (25.0-34.0); Mean Corpuscular Hgb Conc 35.1 g/dL (32.0-36.0); Mean Corpuscular Volume 92.3 fL (80.0-100.0); Mean Platelet Volume 10.9 fL (9.4-12.4); Platelet Count 223 K/uL (130-400); RDW Coefficient of Variation 13.4 % (11.5-14.5); RDW Standard Deviation 45.3 fL (36.4-46.3); Red Blood Count 4.26 M/uL (4.20-5.40); White Blood Count 16.41 K/ul (4.8-10.8)
[2023-01-23] MEDS ORDERED: diphenhydrAMINE 50 MG/ML VIAL IV PRN (19:30)
[2023-01-23] MEDS ORDERED: ePHEDrine sulfate 50 MG/ML AMP IV PRN (19:30)
[2023-01-23] MEDS ORDERED: NALBUPHINE HCL INJ 10 MG/ML AMP IV PRN (19:30)
[2023-01-23] MEDS ORDERED: NALOXONE HCL 0.08 MG in SYRINGE 1.8 ML IV PRN (19:30)
[2023-01-23] MEDS ORDERED: LACTATED RINGER'S 500 ML IV PRN (19:30)
[2023-01-23] MEDS ORDERED: PROMETHAZINE HCL 25 MG in SODIUM CHLORIDE 0.9% 50 ML IV PRN (19:30)
[2023-01-23] MEDS ORDERED: NO NARCOTICS OR SEDATIVES SCH (19:30)
[2023-01-23] MEDS ORDERED: ONDANSETRON INJ 2 MG/ML 2 ML VIAL IV PRN (19:30)
[2023-01-23] MEDS ORDERED: NALOXONE HCL 1 MG in SODIUM CHLORIDE 0.9% 1000ML 1,000 ML IV PRN (19:30)
[2023-01-23] MEDS ORDERED: NALOXONE HCL 0.4 MG/1 ML VIAL/CARP IV PRN (19:30)
[2023-01-23] MEDS ORDERED: SODIUM CHLORIDE 0.9% 1000ML 1,000 ML IV SCH (19:30)
[2023-01-23] MEDS ORDERED: miSOPROStoL 200 MCG TAB ONE (19:42)
[2023-01-23] MEDS ORDERED: METHYLERGONOVINE MALEATE 0.2 MG/ML AMP ONE (19:43)
[2023-01-23] MEDS ORDERED: DIPHTHERIA/TETANUS/PERTUSSIS Vaccine (Tdap, Age 7+yrs) 0.5mL SYR/VL IM ONE (19:47)
[2023-01-23] MEDS ORDERED: BENZOCAINE 20% AER SPR 82.5 GM CAN EXT PRN (19:47)
[2023-01-23] MEDS ORDERED: miSOPROStoL 200 MCG TAB PR ONE (19:47)
[2023-01-23] MEDS ORDERED: METHYLERGONOVINE MALEATE 0.2 MG/ML AMP IM ONE (19:47)
[2023-01-23] MEDS ORDERED: HYDROCORTISONE ACETATE 25 MG SUPP PR PRN (19:47)
[2023-01-23] MEDS ORDERED: ACETAMINOPHEN 325 MG TAB PO PRN (19:47)
[2023-01-23] MEDS ORDERED: bisacodyL 10 MG SUPP PR PRN (19:47)
[2023-01-23 20:07] LABS: Base Excess Cord Venous Blood -3.3 mEq/L (-7.7-1.9); Cord Venous Blood HCO3 23 mmol/L (18.4-26.8); Cord Venous Blood PCO2 43 mmHg (30.4-57.2); Cord Venous Blood PO2 31 mmHg (14.1-43.3); Cord Venous Blood pH 7.33 (7.20-7.44); O2 Saturation Cord Venous Bld < 60.0 % (<68)
[2023-01-23 20:08] LABS: Base Excess Cord Arterial Bld -7.5 mEq/L (-9-1.8); CO2 Cord Arterial Blood 59 mmHg (39.1-73.5); HCO3 Cord Arterial Blood 22 mmol/L (19.7-28.5); Oxygen Sat Cord Arterial Blood < 60.0 % (<60); PO2 Cord Arterial Blood 31 mmHg (4.1-31.7); pH Cord Arterial Blood 7.18 (7.1-7.38)
[2023-01-23] MEDS: DOCUSATE SODIUM 100 MG CAP PO SCH (22:54)
--- NOTE | 2023-01-24 00:02 | Delivery Summary ---
The patient delivered a live in left occiput anterior presentation. There was no nuchal cord. Infant was delivered and placed on mother's abdomen. Delayed cord clamp was performed. Cord blood and cord gases were obtained. Placenta was spontaneously delivered. Inspection of the placenta yo ws a normal looking placenta with 3-vessel cord, no meconium noted. Inspection of the perineum shows no laceration or tears. The estimated blood loss was 450 mL. Baby and mother are doing well in recovery. Infant's weight and Apgars are in the pediatric record. Job ID: [id number]
[2023-01-24] MEDS: IBUPROFEN 600 MG TAB PO PRN ×5 (00:12→20:56)
[2023-01-24 07:51] LABS: Hematocrit (blood only) 34.8 % (37.0-47.0); Hemoglobin 12.4 g/dl (12.0-16.0); Mean Corpuscular Hemoglobin 32.5 pg (25.0-34.0); Mean Corpuscular Hgb Conc 35.6 g/dL (32.0-36.0); Mean Corpuscular Volume 91.1 fL (80.0-100.0); Mean Platelet Volume 10.9 fL (9.4-12.4); Platelet Count 176 K/uL (130-400); RDW Coefficient of Variation 13.3 % (11.5-14.5); RDW Standard Deviation 44.6 fL (36.4-46.3); Red Blood Count 3.82 M/uL (4.20-5.40); White Blood Count 16.11 K/ul (4.8-10.8)
[2023-01-24] MEDS ORDERED: PRENATAL VITAMIN 1 TAB PO SCH (08:00)
[2023-01-24] MEDS: DOCUSATE SODIUM 100 MG CAP PO SCH ×2 (08:37→21:23)
[2023-01-24] MEDS ORDERED: miSOPROStoL 50 MCG TAB PO STA (09:11)
--- NOTE | 2023-01-24 09:18 | History & Physical Report ---
Date of Service January 24, 2023 Assessment & Plan (1) Post-dates : Plan: Cytotec 50 mcg for ripening Admission and Anticipated Discharge Date Admission Date: January 23, 2023 History of Present Illness Chief Complaint: induction of labor for post dates Primary Care Provider: SANTOS PCP 27 F [id number] at 40.4 weeks admitted for induction of labor for post dates. GBS is negative. Allergies Allergy/AdvReac Type Severity Reaction Status Date / Time No Known Allergies Verified 12/25/22 13:54 Home Medications Medication Instructions Recorded Confirmed Type prenat.vits,emerald,skh-clrl-juyez 1 tab PO DAILY 05/14/20 10/24/22 History ondansetron 4 mg disintegrating 4 mg PO Q6H PRN nausea and 10/24/22 Rx tablet vomiting #20 tabs [id number]-fyz-Sz-FA 1 mg 1 tab PO DAILY 12/25/22 12/25/22 History tablet Patient History Medical History Anxiety Anxiety no meds Depression no meds Encounter for pre-operative examination Mandibular hypoplasia Post term over 40 weeks care and examination immediately after delivery PROM (premature rupture of membranes) Rosacea no meds (spontaneous vaginal delivery) 2019 Surgical History H/O oral surgery History of appendectomy as teenager History of esophagogastroduodenoscopy (EGD) History of laparoscopy History of mandibular surgery History of mandibular surgery at age 11 and 14 Hx of appendectomy (~2014) S/P colonoscopy Status post osteotomy bilateral sagittal split osteotomy Family History Father Brain cancer Kidney disease Grandmother (Maternal) Breast cancer Grandfather (Maternal) Diabetes Brother Kidney disease Grandmother No problems noted. Grandmother (Paternal) Lymphoma Grandmother (Maternal) Non-Hodgkin lymphoma Grandfather (Paternal) Pancreas cancer Grandmother (Paternal) Breast cancer Father Brain cancer Denies family history of Ovarian cancer Prostate cancer Colorectal cancer Social History Smoking Status: Never smoker Second Hand Exposure: No; Do You Dip or Chew Tobacco: No; Hx Alcohol Use: No Hx Substance Use: No Preferred Language: Grenadian Communication Ability: Effective Visual Impairment: No Limitations Edge Worker Required: No Beliefs That Will Affect Care: None marital status: marital status details: Maximus Price Current Living Situation: Family Current Living Situation Comment: and 2 1/2 year old son current occupational status: unemployed current occupation: homemaker Other Information That Helps Us Care for You: No Feels Safe at Home: Yes Safety Concerns: Feels Safe At This Time Dental Care, Regularly: Yes Physical Activity Frequency: Does not Exercise Assistive Devices: None 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 Review of Systems All systems reviewed & are unremarkable except as noted in HPI & below Physical Exam Constitutional: WD/WN, vitals as above Eyes: PERRL, conjunctivae normal, anicteric sclerae Respiratory: normal respiratory effort, lungs clear to auscultation Gastrointestinal (Abdomen): Inspection/Auscultation: abdomen normal to inspection Skin: no rashes, warm and dry Neurologic: patellar DTR's 2+ bilat, sensation intact Psychiatric: A+Ox3, euthymic affect Genitourinary: no vaginal lesions, no adnexal mass OB Exam Abdomen: + fundal height and + vertex Manual OB Exam: + cervical dilation 2 cm and 3 cm, + cervical effacement 50% and + station -2 OB Exam Monitor Tracing: + external FHT monitor used, + external uterine monitor used, + category I and + normal FHT variability Results & Data Vital Signs (Past 12 Hours) Vital Signs Temp Pulse Pulse Pulse Resp BP BP 01/24/23 03:04 36.6 C 97 H 18 125/81 01/23/23 23:16 36.7 C 110 H 20 121/82 01/23/23 22:47 118 H 01/23/23 22:47 119/60 01/23/23 21:52 18 01/23/23 21:52 36.7 C 18 01/23/23 21:52 113 H 01/23/23 21:52 152/67 H 01/23/23 21:47 117 H 01/23/23 21:47 118/64 01/23/23 21:42 111 H 01/23/23 21:42 147/64 H 01/23/23 21:32 100 H 01/23/23 21:32 124/58 L 01/23/23 21:27 107 H 01/23/23 21:27 122/58 L 01/23/23 21:21 103 H 01/23/23 21:21 123/60 01/23/23 21:17 98 H 01/23/23 21:17 111/57 L Pulse Ox O2 Del Method 01/24/23 03:04 98 Room Air 01/23/23 23:16 97 Room Air 01/23/23 22:47 01/23/23 22:47 01/23/23 21:52 01/23/23 21:52 01/23/23 21:52 01/23/23 21:52 01/23/23 21:47 01/23/23 21:47 01/23/23 21:42 01/23/23 21:42 01/23/23 21:32 01/23/23 21:32 01/23/23 21:27 01/23/23 21:27 01/23/23 21:21 01/23/23 21:21 01/23/23 21:17 01/23/23 21:17 Laboratory Results 01/23/23 01/23/23 01/23/23 18:30 18:49 19:30 WBC 16.41 H RBC 4.26 Hgb 13.8 Hct 39.3 MCV 92.3 MCH 32.4 MCHC 35.1 RDW Std Deviation 45.3 RDW Coeff of Leticia 13.4 Plt Count 223 MPV 10.9 Cord ABG pH Cord ABG pCO2 Cord ABG pO2 Cord ABG HCO3 Cord ABG Base Excess Cord ABG O2 Sat Cord VBG pH 7.33 Cord VBG pCO2 43 Cord VBG pO2 31 Cord VBG HCO3 23 Cord VBG Base Excess -3.3 Cord VBG O2 Sat < 60.0 Blood Gas Comments PATEL SARS-CoV-2, RNA, NAAT NEGATIVE 01/23/23 01/24/23 19:30 07:35 WBC 16.11 H RBC 3.82 L Hgb 12.4 Hct 34.8 L MCV 91.1 MCH 32.5 MCHC 35.6 RDW Std Deviation 44.6 RDW Coeff of Leticia 13.3 Plt Count 176 MPV 10.9 Cord ABG pH 7.18 Cord ABG pCO2 59 Cord ABG pO2 31 Cord ABG HCO3 22 Cord ABG Base Excess -7.5 Cord ABG O2 Sat < 60.0 Cord VBG pH Cord VBG pCO2 Cord VBG pO2 Cord VBG HCO3 Cord VBG Base Excess Cord VBG O2 Sat Blood Gas Comments PATEL SARS-CoV-2, RNA, NAAT Code Status & VTE Plan VTE Prophylaxis Plan VTE Prophylaxis will be ordered: No Monitoring External Monitor Cat 1
--- NOTE | 2023-01-24 10:34 | Obstetrical Progress Note ---
Date of Service January 24, 2023 Subjective Ambulation: ambulating normally Voiding: no voiding problems Passing Gas:: Yes Diet Tolerance:: regular diet Lochia:: Small Feeding Type:: breast feeding Current Pain Level(1-10): 0 doing well. wants to go home tonight Physical Exam Constitutional WD/WN, vitals as above Gastrointestinal (Abdomen) Inspection/Auscultation: abdomen normal to inspection Musculoskeletal Extremities: extremities normal to inspection Skin no rashes, warm and dry Neurologic patellar DTR's 2+ bilat, sensation intact Psychiatric A+Ox3, euthymic affect Results & Data Vital Signs (Past 12 Hours) Vital Signs Temp Pulse Pulse Pulse Resp BP BP 01/24/23 09:22 36.5 C 90 16 112/77 01/24/23 03:04 36.6 C 97 H 18 01/23/23 23:16 36.7 C 110 H 20 01/23/23 22:47 118 H 01/23/23 22:47 119/60 BP Pulse Ox O2 Del Method 01/24/23 09:22 96 Room Air 01/24/23 03:04 125/81 98 Room Air 01/23/23 23:16 121/82 97 Room Air 01/23/23 22:47 01/23/23 22:47 Laboratory Results Laboratory Results - last 72 hr 01/23/23 01/23/23 01/23/23 18:30 18:49 19:30 WBC 16.41 H RBC 4.26 Hgb 13.8 Hct 39.3 MCV 92.3 MCH 32.4 MCHC 35.1 RDW Std Deviation 45.3 RDW Coeff of Leticia 13.4 Plt Count 223 MPV 10.9 Cord ABG pH Cord ABG pCO2 Cord ABG pO2 Cord ABG HCO3 Cord ABG Base Excess Cord ABG O2 Sat Cord VBG pH 7.33 Cord VBG pCO2 43 Cord VBG pO2 31 Cord VBG HCO3 23 Cord VBG Base Excess -3.3 Cord VBG O2 Sat < 60.0 Blood Gas Comments PATEL SARS-CoV-2, RNA, NAAT NEGATIVE 01/23/23 01/24/23 19:30 07:35 WBC 16.11 H RBC 3.82 L Hgb 12.4 Hct 34.8 L MCV 91.1 MCH 32.5 MCHC 35.6 RDW Std Deviation 44.6 RDW Coeff of Leticia 13.3 Plt Count 176 MPV 10.9 Cord ABG pH 7.18 Cord ABG pCO2 59 Cord ABG pO2 31 Cord ABG HCO3 22 Cord ABG Base Excess -7.5 Cord ABG O2 Sat < 60.0 Cord VBG pH Cord VBG pCO2 Cord VBG pO2 Cord VBG HCO3 Cord VBG Base Excess Cord VBG O2 Sat Blood Gas Comments PATEL SARS-CoV-2, RNA, NAAT
[2023-01-24] MEDS ORDERED: bisacodyL 5 MG TABEC PO SCH (20:00)
--- NOTE | 2023-01-25 07:21 | Coding Query ---
CODING QUERY To promote full compliance with coding requirements relating to patient care, provider participation is requested in all cases of news reel cameraman uncertainty. Please assist us with the question(s) below: Coding Question(s): Please specify below, the number of weeks of gestation of the upon admission: (x ) Specified number of weeks of gestation: Please Specify____39.3 weeks ( ) Unknown number of weeks of gestation ( ) Other: Please Specify Physician's Response(s): Thank you Babita Munson Principal Diagnosis: "that condition established after study, to be chiefly responsible for occasioning the admission of the patient to the hospital for care." Co-Existing Principal Diagnosis: "when two or more diagnoses equally meet the criteria for principal diagnosis as determined by the circumstances of admission, diagnostic work up, and/or therapy provided, and the Alphabetic Index, Tabular List, or another coding guideline does not provide sequencing direction, any one of the diagnoses may be sequenced first." "When the physician has documented what appears to be a current diagnosis in the body of the record, but has not included the diagnosis in the final diagnostic statement, the physician should be asked whether the diagnosis should be added." (Source [facility] 2 QTR90. p3-4) CECILY
--- NOTE | 2023-01-25 13:15 | Anesthesiology Progress Note ---
Date of Service January 23, 2023 Anesthesia Post Procedure Vital Signs Vital Signs: Temp Pulse Pulse Resp BP BP Pulse Ox 01/24/23 19:55 36.7 C 90 83 18 111/74 111/77 95 01/24/23 15:40 36.7 C 83 18 111/77 O2 Del Method 01/24/23 19:55 01/24/23 15:40 Room Air Pain Intensity Abdomen: Pain Intensity: 2 Transfer of Care Handoff Completed per policy Notes Mental Status: alert / awake / arousable Patient Amnestic to Procedure: Yes Nausea / Vomiting: adequately controlled Pain: adequately controlled Airway Patency, RR, SpO2: stable & adequate BP & HR: stable & adequate Hydration State: stable & adequate Neuraxial Anesthesia: was administered and sensory block is resolving Anesthetic Complications: no major complications apparent
== END 2023-01-24 21:18 | disposition home or self-care (01) | DRG 807 ==
LOC: OPB 16:05 → 4S1 16:06 → 4E2 23:30